=== PATIENT | female | born 1935 | race Caucasian/White ===

== ENCOUNTER → 2018-05-29 | Outpatient (CLI) | payer MEDICARE, MEDICAID ==
--- NOTE | 2018-05-29 12:55 | PN ---
Date/Time of Note Date/Time of Note DATE: 05/29/18 TIME: 12:51 Assessment/Plan VTE Prophylaxis Pharmacological prophylaxis: NA/contraindicated Pharm contraindication: low risk/ambulating Assessment/Plan Assessment/Plan 83-year-old female with bilateral knee osteoarthritis. Treatment options were discussed including medications, injections, physical therapy and surgical t reatment. Patient would like to try injections. Bilateral knee steroid injections were administered today. The patient tolerated the procedure well. She will do exercises on her own and follow-up in 3-4 months. The replacement was discussed as an option and may be applicable in the future. Procedure note: Using sterile precautions, both knees were injected with 2 mL of lidocaine, 2 amount of Marcaine and 40 mg of Kenalog. The patient tolerated the procedure well. She is advised to use ice and limit her activities for the next 48 hours. Subjective 24 Hr Interval Summary Free Text/Dictation Abigail is an 83-year-old lady who is here for evaluation of bilateral knee pain. Patient reports pain that has been ongoing for a few years. Left side is worse than the right. There is no history of trauma. Pain increases with weightbearing activities. Pain is associated with swelling and stiffness of the knees. This is preventing her from doing her routine activities. She is here for further management Additional Comments Past history is significant for pacemaker Medications for cardiac rhythm Allergies none Review of systems is negative for major medical issues, positive for knee pain and limited mobility Exam/Review of Systems Vital Signs Vitals Vital signs are stable, blood pressure 166/90, temperature 98 degrees, pulse rate 62 and respiration 14 Exam Condition shows a pleasant female. She is ambulating with a cane. Both knees have varus deformities, left worse than right. Both knees have medial joint line tenderness and mild swelling. Range of motion is 10-105. There is crepitus with range of motion, left side is worse. There is no instability and no neurovascular deficit. X-rays of both knees were done and show moderate osteoarthritis with narrowing of the joint space medially and osteophyte formation KIRAN OLSON May 29, 2018 12:55
--- NOTE | 2018-05-29 19:39 | RADRPT ---
PROCEDURE: Bilateral knee x-ray CLINICAL INDICATION: PAIN TECHNIQUE: AP, lateral and oblique views of the left knee and AP and sunrise views of the right kn ee knees were obtained. COMPARISON: None FINDINGS: Right knee: There is normal mineralization. No acute fracture or dislocation is seen. Mild to moderate medial compartment joint space narrowing mild joint line spurring. There is no significant soft tissue swelling. Left knee: There is normal mineralization. No acute fracture or dislocation is seen. Large joint effusion. Marked medial compartment joint space narrowing and mild mild medial compartment joint line spurring. There is no significant soft tissue swelling. IMPRESSION: 1. Bilateral medial knee joint space narrowing joint line spurring. 2. Large left joint effusion. RPTAT:AAJJ Physician Herminio Date Time Electronically viewed and signed by Physician Herminio on 05/29/2018 19:39 CHRISTY/
== END | disposition home or self-care (01) ==
LOC: EDBD 09:00 → HKI 09:22
PROVIDERS: ATTEND Orthopaedic Surgery
DX: M17.0 Bilateral primary osteoarthritis of knee (principal)
CPT/HCPCS: 20610; 73562; G0463

== ENCOUNTER → 2018-07-10 | Outpatient (CLI) | payer MEDICARE, MEDICAID ==
--- NOTE | 2018-07-10 09:25 | PN ---
Date/Time of Note Date/Time of Note DATE: 07/10/18 TIME: 09:22 Assessment/Plan VTE Prophylaxis Pharmacological prophylaxis: other Assessment/Plan Assessment/Plan 83-year-old female with bilateral knee osteoarthritis. She has tried physical therapy and cortisone injections without relief. At this time, surgical treatment is an option. The patient would like to try Monovisc injections before she has any surgical treatment. The injections were completed today. She will follow-up after 2-3 months. She understands that definitive treatment of the knees may include total knee replacement. Procedure note: Using sterile precautions, both knees were injected with Monovisc. The patient tolerated the procedure well. She will use ice and rest for the next couple of days. Subjective 24 Hr Interval Summary Free Text/Dictation Abigail is an 83-year-old female who is here for follow-up of bilateral knee osteoarthritis. The patient reports no significant relief from cortisone injections that were done at her previous visit. She continues to have pain with ambulation. She has difficulty getting up from a sitting position due to knee pain. The pain sometimes radiates down the leg and up towards the hip. There is no history of trauma, fever or chills. She is here for further management Exam/Review of Systems Exam Vitals Vital signs are stable, patient is afebrile Exam Examination shows a pleasant female. She is obviously in pain. She walks slowly with a slight limp on her left side. She is using a cane for support. Examination of both knees shows mild varus deformities with medial and lateral tenderness. Mild swelling is noted. Range of motion is 10-105 with crepitus. There is no instability and no neurovascular deficit. Previous x-rays show advanced osteoarthritis of both knees with loss of joint space and osteophyte formation KIRAN OLSON Jul 10, 2018 09:25
== END | disposition home or self-care (01) ==
LOC: HKI 08:26
PROVIDERS: ATTEND Orthopaedic Surgery
DX: M17.0 Bilateral primary osteoarthritis of knee (principal)
CPT/HCPCS: 20610; G0463; J7327